=== PATIENT | female | born 1940 ===

== ENCOUNTER 2018-04-26 13:05 | Emergency (ER) | payer MEDICARE ==
[2018-04-26 13:23] VITALS: BP 166/75
--- NOTE | 2018-04-26 14:29 | RAD ---
INDICATION: Left ankle injury. TECHNIQUE: 3 views of the left ankle were obtained. FINDINGS: Soft tissue swelling is noted along the anterolateral aspect of the ankle. No fracture is seen. Joint spaces appear maintained. IMPRESSION: SOFT TISSUE SWELLING, NO FRACTURE IS SEEN.
--- NOTE | 2018-04-26 14:32 | RAD ---
INDICATION: Left foot injury. TECHNIQUE: 3 views of the left foot were obtained. FINDINGS: There is diffuse soft tissue swelling. There is a small bony density measuring 5 x 2 mm in size adjacent to the medial aspect of the navicular bone likely representing an accessory navicular bone less likely a small fracture fragment. No other fractures are seen. Joint spaces appear maintained. IMPRESSION: THERE IS A SMALL BONY DENSITY ADJACENT TO THE MEDIAL ASPECT OF THE NAVICULAR BONE LIKELY REPRESENTING AN ACCESSORY OSSICLE LESS LIKELY A SMALL FRACTURE FRAGMENT. RECOMMEND CORRELATION WITH POINT TENDERNESS.
--- NOTE | 2018-04-26 14:33 | RAD ---
INDICATION: Left knee injury. TECHNIQUE: 4 views of the left knee were obtained. FINDINGS: The bones are in normal alignment. No joint effusion or fracture is seen. Joint spaces appear maintained. IMPRESSION: NO EVIDENCE FOR FRACTURE.
--- NOTE | 2018-04-26 14:57 | RAD ---
Indication: Left leg edema. Duplex Doppler sonography of the deep venous system of the left lower extremity deep venous system was performed. Bilaterally the common femoral veins appear patent and compressible. Left proximal greater saphenous vein, proximal deep femoral vein, femoral vein, popliteal vein, posterior tibial veins and peroneal veins appear patent and compressible.Popliteal fossa cyst measuring 4.1 x 1.3 x 2.7 cm IMPRESSION: NO EVIDENCE OF DEEP VENOUS THROMBOSIS IS IDENTIFIED.
--- NOTE | 2018-04-26 15:12 | UC ---
Britt Argueta Tenzin, scribed for Librado Albarran MD on 04/26/18 at 1350 . General HPI - HPI Summary HPI Summary: Pt is a 77 years old female presenting to the complaining of left knee pain and edema from a fall that took place 11 days ago. She reports that she fell down on her knees. Pt is also complaining of left foot pain. She reports that when she was going through security at the airport she felt a sharp pain after they checked her foot. She denies feeling loose on her knees. She was on the plane for 15 hrs [place] and was worried about any possible blood clot as well. - History of Current Complaint Chief Complaint: UCLowerExtremity Stated Complaint: LEFT KNEE PAIN Time Seen by Provider: 04/26/18 13:22 Hx Obtained From: Patient Onset/Duration: Lasting Days - 11 days ago. Pain Intensity: 0 - Allergy/Home Medications Allergies/Adverse Reactions: Allergies Allergy/AdvReac Type Severity Reaction Status Date / Time No Known Allergies Allergy Verified 04/26/18 13:23 Home Medications: Home Medications Estrogens, Conjugated [Premarin] 04/26/18 [History] Psyllium Husk [Metamucil] 04/26/18 [History] Solifenacin Succinate [Vesicare] 04/26/18 [History] PMH/Surg Hx/FS Hx/Imm Hx - Additional Past Medical History Additional PMH: Pain worst upon waking. Denies injury to foot and ankle but, they are both tender due to swelling. No fevers. Was on flight back from [facility] in the last day. Previously Healthy: Yes - Surgical History Surgical History: Yes Surgery Procedure, Year, and Place: tubal ligation. hysterectomy - Social History Alcohol Use: Weekly Alcohol Amount: 1 drink per night with dinner Substance Use Type: None Smoking Status (MU): Never Smoked Tobacco Review of Systems Constitutional: Negative Skin: Negative Eyes: Negative ENT: Negative Respiratory: Negative Cardiovascular: Negative Gastrointestinal: Negative Genitourinary: Negative Motor: Other - Knee pain when walking down the stairs. Neurovascular: Negative Musculoskeletal: Other: - Left knee swollen and pain. Pain on the left foot. Neurological: Negative Psychological: Negative All Other Systems Reviewed And Are Negative: Yes Physical Exam - Summary Physical Exam Summary: General: well-appearing, no pain distress Skin: warm, color reflects adequate perfusion, dry Head: normal Eyes: EOMI, TIEN ENT: normal Neck: supple, nontender Respiratory: CTA, breath sounds present Cardiovascular: RRR Abdomen: soft, nontender Bowel: present Musculoskeletal: Swollen in LLE and foot. Knee exam is stable. Positive pain on the lateral Ronni, Tender to anterior aspect of the knee, Tender to palpation to his foot bilaterally and tender to calf. Neurological: sensory/motor intact, A&O x3 Psychological: affect/mood appropriate Triage Information Reviewed: Yes Vital Signs: Initial Vital Signs Temp 98.6 F 04/26/18 13:16 Pulse 80 04/26/18 13:16 Resp 14 04/26/18 13:16 BP 166/75 04/26/18 13:16 Pulse Ox 98 04/26/18 13:16 Vital Signs Reviewed: Yes Procedures - Ultrasound No standard instances Ultrasound: normal - No DVT. Positive popliteal cyst. Diagnostics - Radiology No standard instances Xray Interpretation: No Acute Changes - No fractures left knee, ankle, foot. There is a bony island adjacent to medial navicular bone. Course/Dx - Course Course Of Treatment: Discussed Venous Dopler and x-ray reports with the patient. F/U pmd; return if worse. - Differential Dx - Multi-Symptom Provider Diagnoses: Left knee pain/swelling. Left popliteal cyst. LLE edema. Discharge - Sign-Out/Discharge Documenting (check all that apply): Discharge/Admit/Transfer - Discharge Plan Condition: Stable Disposition: HOME Patient Education Materials: Bakers Cyst (ED), Swollen Knee Joint (ED), Knee Pain (ED), Leg Edema (ED) Referrals: Raffaele Del Valle MD [Primary Care Provider] - - Billing Disposition and Condition Condition: STABLE Disposition: Home The documentation as recorded by the Britt wilkinson Tenzin accurately reflects the service I personally performed and the decisions made by me, Librado Albarran MD.
== END 2018-04-26 15:15 | disposition home or self-care (01) ==
LOC: UCEAST 13:05
DX: M71.22 Synovial cyst of popliteal space [Baker], left knee (principal); R60.0 Localized edema; M25.562 Pain in left knee
CPT/HCPCS: 99201; G0463